=== PATIENT | male | born 1955 | race Two or more races ===

== ENCOUNTER 2018-02-23 18:26 | Emergency (ER) | payer OTHER ==
[~2018-02-23] VITALS: Ht 175.3 cm; Wt 72.6 kg
[2018-02-23 18:30] VITALS: Ht 175.3 cm; Wt 72.6 kg
[2018-02-23 19:35] LABS: PLATELET COUNT 248 x10^3mcL (130-400); RED CELL DISTRIBUTION WIDTH 14.4 % (11.5-14.5)
[2018-02-23 19:37] LABS: BASOPHIL % 8.7 % (0-2)
[2018-02-23 19:53] LABS: CALCIUM 9.7 mg/dL (8.5-10.1); CARBON DIOXIDE 24.6 mmol/L (21-32); CHLORIDE SERUM 95 mmol/L (98-107); CREATININE SERUM 0.6 mg/dL (0.7-1.3); GFR1 > 60 mL/min; GLUCOSE SERUM 108 mg/dL (74-106); POTASSIUM SERUM 3.7 mmol/L (3.5-5.1); SODIUM SERUM 128 mmol/L (136-145)
[2018-02-23 19:58] LABS: ALKALINE PHOSPHATASE 122 U/L (46-116); ALT/SGPT 36 U/L (16-63); AST/SGOT 31 U/L (15-37); BILIRUBIN TOTAL 0.5 mg/dL (0.20-1.00); HDL CHOLESTEROL 50 mg/dL (40-60); TOTAL PROTEIN, SERUM 6.3 g/dL (6.4-8.2)
[2018-02-23 19:59] LABS: ALBUMIN 2.5 g/dL (3.4-5.0); CHOLESTEROL 87 mg/dL (<200)
[2018-02-23 23:55] LABS: UA SPECIFIC GRAVITY <=1.005 (1.005-1.035); microscopic required? YES; urine erythrocyte TRACE (NEGATIVE)
[2018-02-24 00:55] VITALS: BP 110/71
== END 2018-02-24 00:55 | disposition home or self-care (01) ==
LOC: ED 18:26
PROVIDERS: Emergency Medicine
DX: J18.9 Pneumonia, unspecified organism (principal); C64.1 Malignant neoplasm of right kidney, except renal pelvis; C18.9 Malignant neoplasm of colon, unspecified; F17.210 Nicotine dependence, cigarettes, uncomplicated; R19.7 Diarrhea, unspecified
CPT/HCPCS: 83880; 99406; J7613; Q9967